=== PATIENT | female | born 1970 | race Caucasian/White ===

== ENCOUNTER → 2025-05-07 16:34 | Outpatient (REF) | payer BC, SELFPAY | LOC: RAD 16:34 | PROVIDERS: ATTENDING PHYSICIAN Obstetrics & Gynecology; FAMILY PHYSICIAN Family Medicine | DX: N92.4 Excessive bleeding in the premenopausal period (principal) | CPT/HCPCS: 76830; 76856 ==

== ENCOUNTER → 2025-05-27 10:50 | Outpatient (REF) | payer BC, SELFPAY | LOC: WDC 10:50 | PROVIDERS: ATTENDING PHYSICIAN Obstetrics & Gynecology; FAMILY PHYSICIAN Family Medicine | DX: R92.8 Other abnormal and inconclusive findings on diagnostic imaging of breast (principal) | CPT/HCPCS: 76642; 77061; 77065 ==